=== PATIENT | female | born 1970 | race Caucasian/White ===

== ENCOUNTER 2016-05-19 14:21 | Inpatient (IN) | payer OTHER ==
[~2016-05-19] VITALS: Ht 165.1 cm; Wt 91.0 kg
[~2016-05-19 14:21] MED LIST: ALBU6.7H INH; HYDR-3535 PO; LISD70 PO; NAPR550 PO
[2016-05-19 14:22] VITALS: BP 124/77; PULSE 126; RESP 14; TEMP 97.9; O2SAT 89
[2016-05-19] MEDS ORDERED: ALBU6.7H INH (15:07)
--- NOTE | 2016-05-19 15:11 | PD ---
HPI . Cough and wheezing Chief Complaint: Cold / Flu Symptoms Time Seen by Provider: 15:05 Travel History International Travel<30 days: No Contact w/Intl Traveler<30days: No Traveled to known affect area: No History of Present Illness HPI Patient presents with cough and wheezing which started yesterday. She uses an albuterol neb machine at home as needed. She states that she has used it 4 times today without any relief. She is not running any fever. Her sputum is white. PFSH Past Medical History ADHD: Yes Diminished Hearing: No Respiratory: Yes (dx with pleurisy 3 months ago) Pancreatitis: Yes Influenza Vaccination: Yes ?: Not Past Surgical History Cholecystectomy: Yes Hysterectomy: Yes Social History Alcohol Use: Yes (SOCIAL) Tobacco Use: Yes (1 PPD havent in the last week ) Substance Use: No Allergies-Medications (Allergen,Severity, Reaction): Coded Allergies: Penicillin (Verified Allergy, Unknown, UNKNOWN, 05/19/16) Reported Meds & Prescriptions Reported Meds & Active Scripts Active Reported Proventil Hfa 6.7 GM Inh (Albuterol Sulfate) 90 Mcg/Act Aer 1 Puff INH Q4H PRN Review of Systems Except as stated in HPI: all other systems reviewed are Neg General / Constitutional: No: Fever, Chills Respiratory: Positive: Cough, Shortness of Breath, Wheezing Physical Exam Narrative GENERAL: Patient with audible wheezing. SKIN: Warm and dry. HEAD: Atraumatic. Normocephalic. EYES: Pupils equal and round. ENT: No nasal bleeding or discharge. Mucous membranes pink and moist. NECK: Trachea midline. Neck is supple. CARDIOVASCULAR: Regular rate and rhythm. Heart sounds are normal. RESPIRATORY: No accessory muscle use. Lungs have fair air movement with diffuse expiratory wheezing. Initial sats are only 89% on room air. GASTROINTESTINAL: Abdomen soft, non-tender, nondistended. MUSCULOSKELETAL: No obvious deformities. No edema. NEUROLOGICAL: Awake and alert. No obvious cranial nerve deficits. Motor grossly within normal limits. Normal speech. PSYCHIATRIC: Appropriate mood and affect; insight and judgment normal. Data Data Last Documented VS Vital Signs Date Time Temp Pulse Resp B/P Pulse Ox O2 Delivery O2 Flow Rate FiO2 05/19/16 14:22 97.9 126 14 124/77 89 Room Air Orders Complete Blood Count With Diff (05/19/16 15:06) Basic Metabolic Panel (Bmp) (05/19/16 15:06) Iv Access Insert/Monitor (05/19/16 15:06) Chest, Single Ap (05/19/16 15:06) Sodium Chloride 0.9% Flush (Ns Flush) (05/19/16 15:15) Methylprednisolone So Succ Inj (Solumedr (05/19/16 15:15) Albuterol-Ipratropium Neb (Duoneb Neb) (05/19/16 15:15) Ceftriaxone Inj (Rocephin Inj) (05/19/16 16:00) Azithromycin Inj (Zithromax Inj) (05/19/16 16:00) Blood Culture (05/19/16 15:55) Lactic Acid (05/19/16 15:55) Ct Pulmonary Angiogram (05/19/16 16:41) Acetamin-Hydrocod 325-5 Mg ([place] 5-325 (05/19/16 16:45) Prochlorperazine Inj (Compazine Inj) (05/19/16 17:00) Diphenhydramine Inj (Benadryl Inj) (05/19/16 17:00) Iohexol 350 Inj (Omnipaque 350 Inj) (05/19/16 17:36) Labs Laboratory Tests Test 05/19/16 05/19/16 15:13 16:09 White Blood Count 16.2 TH/MM3 Red Blood Count 5.26 MIL/MM3 Hemoglobin 17.1 GM/DL Hematocrit 49.8 % Mean Corpuscular Volume 94.6 FL Mean Corpuscular Hemoglobin 32.6 PG Mean Corpuscular Hemoglobin 34.4 % Concent Red Cell Distribution Width 13.4 % Platelet Count 269 TH/MM3 Mean Platelet Volume 8.9 FL Neutrophils (%) (Auto) 73.1 % Lymphocytes (%) (Auto) 13.3 % Monocytes (%) (Auto) 11.5 % Eosinophils (%) (Auto) 1.7 % Basophils (%) (Auto) 0.4 % Neutrophils # (Auto) 11.9 TH/MM3 Lymphocytes # (Auto) 2.2 TH/MM3 Monocytes # (Auto) 1.9 TH/MM3 Eosinophils # (Auto) 0.3 TH/MM3 Basophils # (Auto) 0.1 TH/MM3 CBC Comment DIFF FINAL Differential Comment Sodium Level 138 MEQ/L Potassium Level 4.3 MEQ/L Chloride Level 109 MEQ/L Carbon Dioxide Level 19.0 MEQ/L Anion Gap 10 MEQ/L Blood Urea Nitrogen 14 MG/DL Creatinine 1.11 MG/DL Estimat Glomerular Filtration 53 ML/MIN Rate Random Glucose 85 MG/DL Calcium Level 9.4 MG/DL Lactic Acid Level 1.4 mmol/L MDM Medical Decision Making Medical Screen Exam Complete: Yes Emergency Medical Condition: Yes Medical Record Reviewed: Yes Differential Diagnosis Differential diagnosis of dyspnea includes but is not limited to congestive heart failure, pneumonia, wheezing, pneumothorax, pulmonary embolism Narrative Course Patient presents for treatment of cough and wheezing. She is hypoxic on room air 89%. CBC & BMP Diagram 05/19/16 15:13 The patient's sats remained in the low 90s while receiving her neb treatments. After seeing her white blood count, I added blood cultures and a lactic acid. I have ordered Rocephin and Zithromax. Lactic acid is normal at 1.4. I ordered a CT to rule out PE because of her hypoxia. CT for PE: CONCLUSION: 1. No evidence of pulmonary embolism. 2. Patchy groundglass opacities in both lungs which may represent interstitial lung disease. 3. Small retrocardiac hiatal hernia. Sats have continued to be low even on oxygen. The patient is agreeable to admission. Critical Care Narrative Aggregate critical care time was 45 minutes. Time to perform other separately billable procedures was not included in the critical care time. My time did not include minutes spent treating any other patients simultaneously or on activities that did not directly contribute to the patient's treatment. The services I provided to this patient were to treat and/or prevent clinically significant deterioration due to wheezing with respiratory distress. I provided critical care services requiring my management, as noted below: Chart data review, documentation time, medication orders and management, vital sign assessments/reviewing monitor data, ordering and reviewing lab tests, ordering and interpreting/reviewing x-rays and diagnostic studies, care of the patient and discussion of the patient with the admitting physicians Physician Communication Physician Communication Dr. Isabel will admit. Diagnosis Primary Impression: Respiratory distress Additional Impressions: Leukocytosis Qualified Code: D72.829 - Leukocytosis, unspecified type Bronchospasm Admitting Information Admitting Physician Requests: Admit Condition: Stable Stefanie Chandler MD May 19, 2016 15:11
[2016-05-19] MEDS ORDERED: SODIUM CHLORIDE 0.9% FLUSH 5 ML FLUSH IVF PRN ×2 (15:15→19:15)
[2016-05-19] MEDS ORDERED: methylPREDNISolone SOD SUCC 125 MG/2 ML VIAL IVP ONE (15:15)
[2016-05-19] MEDS: RESP: ALBUTEROL 2.5 MG/IPRATROPIUM 0.5 MG NEB (SCH) INH (15:18)
[2016-05-19 15:27] LABS: AUTOMATED NEUTROPHIL # 11.9 TH/MM3 (1.8-7.7); BASOPHIL # 0.1 TH/MM3 (0-0.2); BASOPHIL % 0.4 % (0.0-2.0); EOSINOPHIL # 0.3 TH/MM3 (0-0.4); EOSINOPHIL % 1.7 % (0.0-4.0); HEMATOCRIT 49.8 % (35.0-46.0); HEMO FLAGS DIFF FINAL; LYMPH % 13.3 % (9.0-44.0); LYMPHOCYTE # 2.2 TH/MM3 (1.0-4.8); MEAN CELL VOLUME 94.6 FL (80.0-100.0); MEAN CORPUSCULAR HEMOGLOBIN 32.6 PG (27.0-34.0); MEAN CORPUSCULAR HGB CONC 34.4 % (32.0-36.0); MONO % 11.5 % (0.0-8.0); NEUT % 73.1 % (16.0-70.0); PLATELET COUNT 269 TH/MM3 (150-450); RED BLOOD COUNT 5.26 MIL/MM3 (4.00-5.30); RED CELL DISTRIBUTION WIDTH 13.4 % (11.6-17.2); WHITE BLOOD COUNT 16.2 TH/MM3 (4.0-11.0)
[2016-05-19 15:48] LABS: POTASSIUM 4.3 MEQ/L (3.5-5.1)
[2016-05-19] MEDS ORDERED: AZITHROMYCIN INJ 500 MG in SODIUM CHLOR 0.9% 250 ML INJ 250 ML IV ONE (16:00)
[2016-05-19] MEDS ORDERED: cefTRIAXone INJ 2,000 MG in SODIUM CHLORIDE 0.9% INJ 100 ML IV ONE (16:00)
--- NOTE | 2016-05-19 16:25 | RADRPT ---
EXAM DATE/TIME: 05/19/2016 13:34 [facility] COMPARISON: CHEST SINGLE AP, July 21, 2013, 19:14. INDICATIONS : Patient is short of breath and has chest tightness for two days. MEDICAL HISTORY : None. SURGICAL HISTORY : None. ENCOUNTER: Initial ACUITY: 2 days PAIN SCORE: 0/10 LOCATION: Bilateral chest FINDINGS: A single view of the chest demonstrates the lungs to be symmetrically aerated without evidence of mas s, infiltrate or effusion. The cardiomediastinal contours are unremarkable. Osseous structures are intact. CONCLUSION: No acute disease. Hiro Day MD on May 19, 2016 at 16:24 Board Certified Radiologist. This report was verified electronically.
[2016-05-19] MEDS ORDERED: ACETAMINOPHEN/HYDROcodone 325 MG/5 MG TAB PO ONE (16:45)
[2016-05-19] MEDS ORDERED: PROCHLORPERAZINE INJ 10 MG/2 ML VIAL IVS ONE (17:00)
[2016-05-19] MEDS ORDERED: diphenhydrAMINE HCL 50 MG/ML VIAL IV PUSH ONE (17:00)
[2016-05-19] MEDS ORDERED: IOHEXOL 350 MG/ML 10 ML VIAL (for RAD DIAG) IV ONE (17:36)
--- NOTE | 2016-05-19 17:42 | RADRPT ---
EXAM DATE/TIME: 05/19/2016 17:21 [facility] COMPARISON: CT PULMONARY ANGIOGRAM, July 21, 2013, 21:23. INDICATIONS : Cough, wheezing and shortness of breath. IV CONTRAST: 50 cc Omnipaque 350 (iohexol) IV RADIATION DOSE: 14.34 CTDIvol (mGy) MEDICAL HISTORY : Pancreatitis. SURGICAL HISTORY : Cholecystectomy. Hysterectomy. ENCOUNTER: Initial ACUITY: 1 day PAIN SCALE: 0/10 LOCATION: chest TECHNIQUE: Volumetric scanning of the chest was performed using a pulmonary embolism protocol MIP images were re constructed. Using automated exposure control and adjustment of the mA and/or kV according to patien t size, radiation dose was kept as low as reasonably achievable to obtain optimal diagnostic quality images. FINDINGS: PULMONARY ARTERIES: No filling defects are seen in the pulmonary arteries through the segmental level. LUNGS: There is no pneumothorax . Patchy groundglass opacities are noted throughout both lungs. No concerni ng pulmonary nodule is visualized. PLEURAE: There is no pleural thickening or pleural effusion. MEDIASTINUM: There is good visualization of the great vessels of the middle mediastinum. No evidence of mediastin al or hilar adenopathy/mass. MUSCULOSKELETAL: Within normal limits for patient age. MISCELLANEOUS: The visualized upper abdominal organs demonstrate no acute abnormality. There is a small hiatal herni a. CONCLUSION: 1. No evidence of pulmonary embolism. 2. Patchy groundglass opacities in both lungs which may represent interstitial lung disease. 3. Small retrocardiac hiatal hernia. Hiro Day MD on May 19, 2016 at 17:38 Board Certified Radiologist. This report was verified electronically.
[2016-05-19] MEDS ORDERED: ONDANSETRON HCL 4 MG/2 ML VIAL IV PRN (19:15)
[2016-05-19] MEDS ORDERED: DOCUSATE SODIUM 50 MG/SENNA 8.6 MG TAB PO PRN (19:15)
[2016-05-19] MEDS ORDERED: RESP: ALBUTEROL 2.5 MG/IPRATROPIUM 0.5 MG NEB (PRN) NEB (19:15)
[2016-05-19] MEDS ORDERED: TEMAZEPAM 15 MG CAP PO PRN (19:15)
[2016-05-19] MEDS ORDERED: ENALAPRILAT 1.25 MG/ML VIAL IV PUSH PRN (19:15)
--- NOTE | 2016-05-19 19:21 | HHI.HP ---
[facility] Service [facility] Primary Care Physician Surekha Lomeli Admission Diagnosis BRONCHOSPASM Diagnoses: (1) COPD with exacerbation Chief Complaint: Shortness of breath Travel History International Travel<30 Days: No Contact w/Intl Traveler <30 Da: No Traveled to Known Affected Are: No History of Present Illness 45 year-old female with a history of tobacco abuse presented to the ED for evaluation of 2 day history of shortness of breath associated with nonproductive cough without any febrile episode. Patient denies any chest pain. She was prescribed nebulizer recently for presumed pneumonia and states she's been taking that medication however has had no relief. CTA was negative for PE and patient denies any hemoptysis, hematuria or GI bleed. Review of Systems Other 12 systems reviewed and are negative except for the one mentioned in history of present in this Past Family Social History Past Medical History ADHD Pancreatitis: Yes Past Surgical History Cholecystectomy: Yes Hysterectomy: Yes Reported Medications Proventil Hfa 6.7 GM Inh (Albuterol Sulfate) 90 Mcg/Act Aer 1 Puff INH Q4H PRN Allergies: Coded Allergies: Penicillin (Verified Allergy, Unknown, UNKNOWN, 05/19/16) Family History Father had history of pulmonary fibrosis, hyperlipidemia Mother has a history of hyperlipidemia Social History Alcohol Use: Yes (SOCIAL) Tobacco Use: Yes (1 PPD haven't in the last week ) Substance Use: No Physical Exam Vital Signs Vital Signs Date Time Temp Pulse Resp B/P Pulse Ox O2 Delivery O2 Flow Rate FiO2 05/19/16 14:22 97.9 126 14 124/77 89 Room Air Physical Exam GENERAL: This is a well-nourished, well-developed patient, in no apparent distress. SKIN: No rashes, ecchymoses or lesions. Cool and dry. HEAD: Atraumatic. Normocephalic. No temporal or scalp tenderness. EYES: Pupils equal round and reactive. Extraocular motions intact. No scleral icterus. No injection or drainage. ENT: Nose without bleeding, purulent drainage or septal hematoma. Throat without erythema, tonsillar hypertrophy or exudate. Uvula midline. Airway patent. NECK: Trachea midline. No JVD or lymphadenopathy. Supple, nontender, no meningeal signs. CARDIOVASCULAR: Regular rate and rhythm without murmurs, gallops, or rubs. RESPIRATORY: Clear to auscultation. Breath sounds equal bilaterally. Bilateral expiratory wheeze GASTROINTESTINAL: Abdomen soft, non-tender, nondistended. No hepato-splenomegaly , or palpable masses. No guarding. MUSCULOSKELETAL: Extremities without clubbing, cyanosis, or edema. No joint tenderness, effusion, or edema noted. No calf tenderness. Negative Homans sign bilaterally. NEUROLOGICAL: Awake and alert. Cranial nerves II through XII intact. Motor and sensory grossly within normal limits. Five out of 5 muscle strength in all muscle groups. Normal speech. Laboratory Laboratory Tests Test 05/19/16 05/19/16 15:13 16:09 White Blood Count 16.2 Red Blood Count 5.26 Hemoglobin 17.1 Hematocrit 49.8 Mean Corpuscular Volume 94.6 Mean Corpuscular Hemoglobin 32.6 Mean Corpuscular Hemoglobin 34.4 Concent Red Cell Distribution Width 13.4 Platelet Count 269 Mean Platelet Volume 8.9 Neutrophils (%) (Auto) 73.1 Lymphocytes (%) (Auto) 13.3 Monocytes (%) (Auto) 11.5 Eosinophils (%) (Auto) 1.7 Basophils (%) (Auto) 0.4 Neutrophils # (Auto) 11.9 Lymphocytes # (Auto) 2.2 Monocytes # (Auto) 1.9 Eosinophils # (Auto) 0.3 Basophils # (Auto) 0.1 CBC Comment DIFF FINAL Differential Comment Sodium Level 138 Potassium Level 4.3 Chloride Level 109 Carbon Dioxide Level 19.0 Anion Gap 10 Blood Urea Nitrogen 14 Creatinine 1.11 Estimat Glomerular Filtration 53 Rate Random Glucose 85 Calcium Level 9.4 Lactic Acid Level 1.4 Date/Time Procedure Status Source Growth 05/19/16 16:09 Aerobic Blood Culture Received Blood Peripheral Pending 05/19/16 16:09 Anaerobic Blood Culture Received Blood Peripheral Pending Result Diagram: 05/19/16 1513 05/19/16 [address] Angiography 05/19/16 1641 Signed Impressions: Service Date/Time: May 17:21 - CONCLUSION: 1. No evidence of pulmonary embolism. 2. Patchy groundglass opacities in both lungs which may represent interstitial lung disease. 3. Small retrocardiac hiatal hernia. Hiro Day MD Chest X-Ray 05/19/16 1506 Signed Impressions: Service Date/Time: May 13:34 - CONCLUSION: No acute disease. Hiro Day MD Assessment and Plan Problem List: (1) COPD with exacerbation ICD Code: J44.1 Status: Acute Assessment and Plan 45-year-old female with 1-COPD exacerbation: CTA noted in review without any evidence of PE, chest x- ray noted and reviewed by me without any evidence of acute pulmonary disease. Will check bedside PFTs. Status post Solu-Medrol 125 mg 1, continue with Solu- Medrol 40 mg every 12 hours and start scheduled and when necessary DuoNeb,; and Spiriva. Keep oxygen saturation above 92%. Continue with azithromycin. Check flu A and B antigens as well as sputum culture. Patient advised on continued tobacco cessation 2-Leukocytosis: Likely reactive, however continue with above antibiotics 3-Hemoconcentration: Monitor H&H 4-ADHD: However patient currently not on any medication 5-DVT prophylaxis: Bilateral SCDs Code Status Full code Discussed Condition With Patient, ED physician Physician Certification 2 Midnight Certification Type: Admission for Inpatient Services Order for Inpatient Services The services are ordered in accordance with Medicare regulations or non- Medicare payer requirements, as applicable. In the case of services not specified as inpatient-only, they are appropriately provided as inpatient services in accordance with the 2-midnight benchmark. Estimated LOS (days): 2 days is the estimated time the patient will need to remain in the hospital, assuming treatment plan goals are met and no additional complications. Post-Hospital Plan: Not yet determined Naga Isabel MD May 19, 2016 19:21
[2016-05-19 19:57] VITALS: O2SAT 92
[2016-05-19] MEDS: RESP: ALBUTEROL 2.5 MG/IPRATROPIUM 0.5 MG NEB (SCH) NEB (19:58)
[2016-05-19 20:15] VITALS: BP 126/72; PULSE 130; RESP 24; O2SAT 90
[2016-05-19] MEDS: SODIUM CHLORIDE 0.9% FLUSH 5 ML FLUSH IVF SCH (20:53)
[2016-05-19 21:15] VITALS: BP 130/80; PULSE 127; RESP 20; TEMP 96.4; O2SAT 92
[2016-05-19] MEDS: ACETAMINOPHEN 325 MG TAB PO PRN (22:29)
[2016-05-19] MEDS: BUDESONIDE-FORMOTEROL 160/4.5 MCG INHALER INH SCH (22:29)
[2016-05-19] MEDS: methylPREDNISolone SOD SUCC 125 MG/2 ML VIAL IVP SCH (22:31)
[2016-05-20] VITALS (8 sets, daily range): BP systolic 110–130; BP diastolic 69–79; PULSE 94–116; RESP 18–19; TEMP 96.4–98.5; O2SAT 93–98
[2016-05-20] MEDS: ACETAMINOPHEN 325 MG TAB PO PRN ×2 (04:58→19:53)
[2016-05-20 06:58] LABS: AUTOMATED NEUTROPHIL # 11.8 TH/MM3 (1.8-7.7); BASOPHIL % 0.2 % (0.0-2.0); HEMATOCRIT 47.6 % (35.0-46.0); HEMO FLAGS DIFF FINAL; LYMPH % 8.4 % (9.0-44.0); LYMPHOCYTE # 1.2 TH/MM3 (1.0-4.8); MEAN CELL VOLUME 94.8 FL (80.0-100.0); MEAN CORPUSCULAR HEMOGLOBIN 33.3 PG (27.0-34.0); MEAN CORPUSCULAR HGB CONC 35.1 % (32.0-36.0); MONO % 4.8 % (0.0-8.0); NEUT % 86.6 % (16.0-70.0); PLATELET COUNT 212 TH/MM3 (150-450); RED BLOOD COUNT 5.02 MIL/MM3 (4.00-5.30); RED CELL DISTRIBUTION WIDTH 13.6 % (11.6-17.2); WHITE BLOOD COUNT 13.6 TH/MM3 (4.0-11.0)
[2016-05-20] MEDS: RESP: ALBUTEROL 2.5 MG/IPRATROPIUM 0.5 MG NEB (SCH) NEB ×3 (07:56→20:06)
[2016-05-20] MEDS: methylPREDNISolone SOD SUCC 125 MG/2 ML VIAL IVP SCH ×2 (08:37→20:29)
[2016-05-20] MEDS: BUDESONIDE-FORMOTEROL 160/4.5 MCG INHALER INH SCH ×2 (08:37→20:32)
[2016-05-20] MEDS: AZITHROMYCIN 250 MG TAB PO SCH (08:38)
[2016-05-20] MEDS: SODIUM CHLORIDE 0.9% FLUSH 5 ML FLUSH IVF SCH ×2 (08:45→20:30)
[2016-05-20] MEDS: ALUMINUM/MAGNESIUM/SIMETH 30 ML CUP PO PRN ×2 (12:08→18:45)
--- NOTE | 2016-05-20 14:06 | HHI.PR ---
Subjective Remarks f-u COPD exacerbation 05/20/16-patient seen and examined; although she reports some improvement of shortness of breath however she still feels some chest tightness. Objective Vitals Vital Signs Date Time Temp Pulse Resp B/P Pulse Ox O2 Delivery O2 Flow Rate FiO2 05/20/16 12:00 98.5 103 18 126/78 94 05/20/16 08:00 98.2 105 18 115/79 93 05/20/16 07:58 95 Nasal Cannula 3.00 05/20/16 04:00 97.0 116 19 130/78 93 05/20/16 00:00 96.4 114 19 110/69 98 05/19/16 21:15 96.4 127 20 130/80 92 05/19/16 20:15 130 24 126/72 90 Nasal Cannula 3 05/19/16 19:57 92 Nasal Cannula 3.00 05/19/16 14:22 97.9 126 14 124/77 89 Room Air I/O 05/19/16 05/19/16 05/19/16 05/20/16 05/20/16 05/20/16 07:00 15:00 23:00 07:00 15:00 23:00 Intake Total 240 ml 480 ml Balance 240 ml 480 ml Intake Oral 240 ml 480 ml # Voids 2 Result Diagram: 05/20/16 0540 05/19/16 [address] Angiography 05/19/16 1641 Signed Impressions: Service Date/Time: May 17:21 - CONCLUSION: 1. No evidence of pulmonary embolism. 2. Patchy groundglass opacities in both lungs which may represent interstitial lung disease. 3. Small retrocardiac hiatal hernia. Hiro Day MD Chest X-Ray 05/19/16 1506 Signed Impressions: Service Date/Time: May 13:34 - CONCLUSION: No acute disease. Hiro Day MD Objective Remarks GENERAL: NAD SKIN: Warm and dry. HEAD: Normocephalic. EYES: No scleral icterus. No injection or drainage. NECK: Supple, trachea midline. No JVD or lymphadenopathy. CARDIOVASCULAR: Regular rate and rhythm without murmurs, gallops, or rubs. RESPIRATORY: Breath sounds equal bilaterally. No accessory muscle use. GASTROINTESTINAL: Abdomen soft, non-tender, nondistended. MUSCULOSKELETAL: No cyanosis, or edema. BACK: Nontender without obvious deformity. No CVA tenderness. A/P Problem List: (1) COPD with exacerbation ICD Code: J44.1 Status: Acute Assessment and Plan 45-year-old female with 1-COPD exacerbation: CTA without any evidence of PE, chest x-ray without any evidence of acute pulmonary disease. bedside PFTs. Status post Solu-Medrol 125 mg 1, continue with Solu-Medrol 40 mg every 12 hours and scheduled and when necessary DuoNeb, Spiriva. Keep oxygen saturation above 92%. Continue with azithromycin. flu A and B antigens negative.sputum culture pending. Patient advised on continued tobacco cessation 2-Leukocytosis: Likely reactive, however continue with above antibiotics 3-Hemoconcentration: Monitor H&H 4-ADHD: However patient currently not on any medication 5-DVT prophylaxis: Bilateral SCDs Naga Isabel MD May 20, 2016 14:06
[2016-05-20] MEDS ORDERED: BENZONATATE 100 MG CAP PO PRN (20:15)
[2016-05-21] VITALS: BP 131/84; PULSE 105; RESP 19; TEMP 95.9; O2SAT 93
[2016-05-21] MEDS: ALUMINUM/MAGNESIUM/SIMETH 30 ML CUP PO PRN (01:02)
[2016-05-21 04:00] VITALS: BP 127/81; PULSE 93; RESP 18; TEMP 96.7; O2SAT 94
[2016-05-21 08:00] VITALS: BP 114/73; PULSE 92; RESP 16; TEMP 97.8; O2SAT 96
[2016-05-21] MEDS: AZITHROMYCIN 250 MG TAB PO SCH (08:06)
[2016-05-21] MEDS: methylPREDNISolone SOD SUCC 125 MG/2 ML VIAL IVP SCH (08:06)
[2016-05-21] MEDS: SODIUM CHLORIDE 0.9% FLUSH 5 ML FLUSH IVF SCH (08:07)
[2016-05-21] MEDS: BUDESONIDE-FORMOTEROL 160/4.5 MCG INHALER INH SCH (08:07)
[2016-05-21] MEDS: RESP: ALBUTEROL 2.5 MG/IPRATROPIUM 0.5 MG NEB (SCH) NEB (08:15)
[2016-05-21 08:16] VITALS: O2SAT 96
[2016-05-21] MEDS ORDERED: predniSONE 20 MG TAB PO SCH (09:00)
--- NOTE | 2016-05-21 10:57 | HHI.PR ---
Subjective Remarks f-u COPD exacerbation 05/20/16-patient seen and examined; although she reports some improvement of shortness of breath however she still feels some chest tightness. 05/21/16-patient seen and examined; reports significant improvement or shortness of breath. Denies any chest pain. Objective Vitals Vital Signs Date Time Temp Pulse Resp B/P Pulse Ox O2 Delivery O2 Flow Rate FiO2 05/21/16 08:16 96 Nasal Cannula 2.00 05/21/16 08:00 97.8 92 16 114/73 96 05/21/16 04:00 96.7 93 18 127/81 94 05/21/16 00:00 95.9 105 19 131/84 93 05/20/16 20:33 18 05/20/16 20:07 96 Nasal Cannula 2.50 05/20/16 20:00 97.5 94 18 118/74 94 05/20/16 16:00 97.9 110 18 130/78 94 05/20/16 12:00 98.5 103 18 126/78 94 I/O 05/20/16 05/20/16 05/20/16 05/21/16 05/21/16 05/21/16 07:00 15:00 23:00 07:00 15:00 23:00 Intake Total 480 ml 1080 ml 480 ml 480 ml Balance 480 ml 1080 ml 480 ml 480 ml Intake Oral 480 ml 1080 ml 480 ml 480 ml # Voids 2 3 2 # Bowel Movements 1 Result Diagram: 05/20/16 0540 05/19/16 [address] Angiography 05/19/16 1641 Signed Impressions: Service Date/Time: May 17:21 - CONCLUSION: 1. No evidence of pulmonary embolism. 2. Patchy groundglass opacities in both lungs which may represent interstitial lung disease. 3. Small retrocardiac hiatal hernia. Hiro Day MD Chest X-Ray 05/19/16 1506 Signed Impressions: Service Date/Time: May 13:34 - CONCLUSION: No acute disease. Hiro Day MD Objective Remarks GENERAL: NAD SKIN: Warm and dry. HEAD: Normocephalic. EYES: No scleral icterus. No injection or drainage. NECK: Supple, trachea midline. No JVD or lymphadenopathy. CARDIOVASCULAR: Regular rate and rhythm without murmurs, gallops, or rubs. RESPIRATORY: Breath sounds equal bilaterally. No accessory muscle use. GASTROINTESTINAL: Abdomen soft, non-tender, nondistended. MUSCULOSKELETAL: No cyanosis, or edema. BACK: Nontender without obvious deformity. No CVA tenderness. Procedures None A/P Problem List: (1) COPD with exacerbation ICD Code: J44.1 Status: Acute Assessment and Plan 45-year-old female with 1-COPD exacerbation: CTA without any evidence of PE, chest x-ray without any evidence of acute pulmonary disease. bedside PFTs. Status post Solu-Medrol 125 mg 1, d/c Solu-Medrol 40 mg every 12 hours start prednisone 20 mg daily and continue scheduled and when necessary DuoNeb, Spiriva. Keep oxygen saturation above 92%. Continue with azithromycin. flu A and B antigens negative.sputum culture pending. Patient advised on continued tobacco cessation 2-Leukocytosis: Likely reactive, however continue with above antibiotics 3-Hemoconcentration: Monitor H&H 4-ADHD: However patient currently not on any medication 5-DVT prophylaxis: Bilateral SCDs Naga Isabel MD May 21, 2016 10:57
[2016-05-21] MEDS ORDERED: PRED20 PO (10:58)
[2016-05-21] MEDS ORDERED: SPIRCAP INH (10:58)
[2016-05-21] MEDS ORDERED: SYMB160A INH (10:58)
--- NOTE | 2016-05-21 11:01 | HHI.DS ---
Discharge Summary Admission Date May 19, 2016 at 17:56 Discharge Date: May 21, 2016 Admitting Diagnosis BRONCHOSPASM (1) COPD with exacerbation ICD Code: J44.1 Procedures None Brief History - From Admission 45 year-old female with a history of tobacco abuse presented to the ED for evaluation of 2 day history of shortness of breath associated with nonproductive cough without any febrile episode. Patient denies any chest pain. She was prescribed nebulizer recently for presumed pneumonia and states she's been taking that medication however has had no relief. CTA was negative for PE and patient denies any hemoptysis, hematuria or GI bleed. CBC/BMP: 05/20/16 0540 05/19/16 1513 Significant Findings Laboratory Tests Test 05/19/16 05/20/16 15:13 05:40 White Blood Count 16.2 TH/MM3 13.6 TH/MM3 (4.0-11.0) (4.0-11.0) Hemoglobin 17.1 GM/DL 16.7 GM/DL (11.6-15.3) (11.6-15.3) Hematocrit 49.8 % 47.6 % (35.0-46.0) (35.0-46.0) Neutrophils (%) (Auto) 73.1 % 86.6 % (16.0-70.0) (16.0-70.0) Monocytes (%) (Auto) 11.5 % (0.0-8.0) Neutrophils # (Auto) 11.9 TH/MM3 11.8 TH/MM3 (1.8-7.7) (1.8-7.7) Monocytes # (Auto) 1.9 TH/MM3 (0-0.9) Chloride Level 109 MEQ/L (98-107) Carbon Dioxide Level 19.0 MEQ/L (21.0-32.0) Creatinine 1.11 MG/DL (0.50-1.00) Estimat Glomerular Filtration 53 ML/MIN (>89) Rate Lymphocytes (%) (Auto) 8.4 % (9.0-44.0) Imaging Last Impressions CT Angiography 05/19/16 1641 Signed Impressions: Service Date/Time: May 17:21 - CONCLUSION: 1. No evidence of pulmonary embolism. 2. Patchy groundglass opacities in both lungs which may represent interstitial lung disease. 3. Small retrocardiac hiatal hernia. Hiro Day MD Chest X-Ray 05/19/16 1506 Signed Impressions: Service Date/Time: May 13:34 - CONCLUSION: No acute disease. Hiro Day MD PE at Discharge GENERAL: NAD SKIN: Warm and dry. HEAD: Normocephalic. EYES: No scleral icterus. No injection or drainage. NECK: Supple, trachea midline. No JVD or lymphadenopathy. CARDIOVASCULAR: Regular rate and rhythm without murmurs, gallops, or rubs. RESPIRATORY: Breath sounds equal bilaterally. No accessory muscle use. GASTROINTESTINAL: Abdomen soft, non-tender, nondistended. MUSCULOSKELETAL: No cyanosis, or edema. BACK: Nontender without obvious deformity. No CVA tenderness. Hospital Course Patient admitted for COPD exacerbations bedside PFTs were obtained. Patient was started on Solu-Medrol as well as scale and when necessary DuoNeb, azithromycin and Symbicort. Her oxygen saturation was maintained above 92%. Flu A and B antigens were negative. COPD educator was consulted and patient was advised on tobacco cessation. DVT prophylaxis was provided. Patient vitals remained stable and her condition improved prior to discharge. Pt Condition on Discharge: Stable Discharge Disposition: Discharge Home Discharge Time: <= 30 minutes Discharge Instructions DIET: Follow Instructions for: Heart Healthy Diet Activities you can perform: Regular-No Restrictions Follow up Referrals: PCP Follow-up - 1 Week New Medications: Tiotropium Inh (Spiriva Handihaler) 18 Mcg Cap 18 MCG INH DAILY 1 capsule = 18 mcg COPD #30 Ref 0 CAP Budesonide-Formoterol Inh (Symbicort Inh) 160-4.5 Mcg/Act Aero 2 PUFF INH Q12HR Breathing Treatment #60 INHALER Prednisone (Prednisone) 20 Mg Tab 20 MG PO DAILY Breathing Treatment #7 TAB Continued Medications: Albuterol 6.7 GM Inh (Proventil Hfa 6.7 GM Inh) 90 Mcg/Act Aer 1 PUFF INH Q4H PRN SHORTNESS OF BREATH #1 Ref 0 INHALER Naga Isabel MD May 21, 2016 11:01
[2016-05-21 12:00] VITALS: BP 111/70; PULSE 95; RESP 18; TEMP 97.5; O2SAT 94
--- NOTE | 2016-07-28 09:59 | RSPPFT ---
DATE OF PROCEDURE: 05/20/16 COMMENTS: Spirometry with FEV1 at 85% of predicted, FVC at 81% indicating normal spirometry. No reversibility noted after acutely inhaled bronchodilator. IMPRESSION: 1. Normal spirometry.
== END 2016-05-21 13:03 | disposition home or self-care (01) | DRG 192 ==
LOC: NEPE 14:21 → NEDA 17:56 → HOCB 21:13
PROVIDERS: ADMIT Hospitalist; ATTEND Hospitalist
DX: J44.1 Chronic obstructive pulmonary disease with (acute) exacerbation (principal); F17.210 Nicotine dependence, cigarettes, uncomplicated; R09.02 Hypoxemia; Z88.0 Allergy status to penicillin
CPT/HCPCS: 71010; 71275; 80048; 83605; 85025; 87040; 87070; 87205; 87804; 94010; 94620; 94640; 94664; 96365; 96375; J0456; J0696; J0780; J1200; J2930; J7050; Q9967